=== PATIENT | female | born 1950 ===

== ENCOUNTER → 2021-09-29 | Day surgery (SDC) | payer MEDICARE, MEDICAID | END | disposition home or self-care (01) | LOC: SPEC 08:22 | PROVIDERS: ATTEND Internal Medicine Infectious Disease | PROC: 0FP030Z Removal of Drainage Device from Liver, Percutaneous Approach (ICD-10-PCS; principal; 2021-09-29) | DX: K75.0 Abscess of liver (principal) | CPT/HCPCS: 47010 ==